=== PATIENT | female | born 1945 | race Caucasian/White ===

== ENCOUNTER 2021-02-16 18:56 | Inpatient (IN) | payer MEDICARE, OTHER ==
[~2021-02-16] VITALS: Ht 160 cm; Wt 108.0 kg
[2021-02-16 18:58] VITALS: BP 182/80
[2021-02-16] MEDS ORDERED: CLONAZEPAM 0.50.5 M1 PO (19:02)
[2021-02-16 21:41] LABS: ABSOLUTE BASOPHILS 0.1 thou/uL (0.0-0.2); ABSOLUTE EOSINOPHILS 0.1 thou/uL (0.0-0.7); ABSOLUTE LYMPHOCYTES 1.1 thou/uL (0.8-5.3); ABSOLUTE MONOCYTES 0.9 thou/uL (0.0-1.2); ABSOLUTE NEUTROPHILS 11.8 thou/uL (1.6-8.1); BASOPHILS 0.6 %; EOSINOPHILS 0.4 %; HEMATOCRIT 36.5 % (37.0-47.0); LYMPHOCYTES 7.6 %; MCH 27.4 pg (26.0-34.0); MCHC 32.9 g/dL (28.0-37.0); MCV 83.5 fL (80.0-100.0); MONOCYTES 6.4 %; MPV 8.5 fl. (7.2-11.1); NUCLEATED RBCS 0 /100WBC; PLATELET COUNT* 238 thou/uL (150-400); RBC 4.38 mil/uL (4.20-5.00); RDW-CV 15.4 % (10.5-14.5); WBC 13.9 thou/uL (4.0-11.0)
[2021-02-16 21:52] LABS: APTT 22.9 Seconds (25.0-31.3); PROTIME 10.5 Seconds (9.20-11.50)
[2021-02-16 22:01] LABS: ALBUMIN 3.5 g/dL (3.4-5.0); CALCIUM 8.5 mg/dL (8.5-10.1); CREATININE 0.9 mg/dL (0.6-1.3); POTASSIUM 3.8 mmol/L (3.5-5.1); TOTAL BILIRUBIN 0.4 mg/dL (<0.1-1.0)
[2021-02-16 23:18] VITALS: BP 169/70
[2021-02-16 23:20] VITALS: BP 152/71
--- NOTE | 2021-02-17 02:39 | NUR ---
ADMIT NOTE: RECIEVED PT FROM ED WITH FRACTURE, PT ALERT ORIENTED X4 , PT PULLED TO BED PAIN NOTED WITH MOVEMENT , ASSESMENT AND DATA COMPLETED. PT PLACED NPO. IV FLUIDS STARTED ORDERED.BED ALARM ON , YELLOW BAND PLACE AND YELLOW SLIPPER PLACED FOR FALL RISK.
[2021-02-17 04:00] VITALS: BP 136/61
--- NOTE | 2021-02-17 07:07 | NUR ---
PT RESTED WELL THROUHGOUT HOURLY ROUND IV FLUID INFUSING WELL. PUREWICK IN PLACE PT AWAKEN AT 0600 BLADDER SCANNED . SHOWS 565 , PT PLACED ON BEDPAN , PT UNABLE TO VOID. CALL PLACED HERIBERTO COTTER MD , AWAITING CALL BACK.
[2021-02-17 08:00] VITALS: BP 143/53
--- NOTE | 2021-02-17 08:00 | NUR ---
ORDER RECIEVED TO PLACED ABREU CATHETER IN , PLACED 16 FR , PT TOLETATED WELL, CLEAR YELLOW OUTPUT RETURNED. PT RESTING IN BED, GEORGE AT BEDSIDE.
--- NOTE | 2021-02-17 09:06 | EKG ---
[place] [address] ELECTROCARDIOGRAM REPORT Name: HAYLEY ESTEVEZ Room: [address] IN [facility].#: [id number] Admission: 02/16/21 Attend Phys: Vonnie Cabrales, Discharge: Date of : 43 Date of Service: 02/16/212036 Report #: [id number] THIS REPORT FOR: //name// [facility] [place] ED Test Date: 2021-02-16 Test Time: 20:37:38 Pat Name: HAYLEY ESTEVEZ Department: Room: [facility] Gender: F Drafter Apprentice: ADAM : 1945 Requested By: Kimberly Cutler Order Number: [id number] MD: Shaun Davis Measurements Intervals [place] Rate: 63 P: 14 CA: 180 QRS: 19 QRSD: 96 T: 19 QT: 437 QTc: 448 Interpretive Statements Sinus rhythm Low voltage, precordial leads Baseline wander in lead(s) II,III,aVF No previous ECG available for comparison Electronically Signed On 02-17-2021 9:06:27 CDT by Shaun Davis [email or web address] <ELECTRONICALLY SIGNED> By: Shaun Davis MD, FAC 02/17/21905 36 36 Shaun Davis MD, FAC /EPI
--- NOTE | 2021-02-17 10:37 | NUR ---
ASSUMED CARE OF PT AT 0730. PT A&0X4, DENIES ANY PAIN OR SHORTNESS OF BREATH AT THIS TIME. PT GIVEN PAIN MED BY NOC SHIFT WITH RELIEF. MED SURG STATUS. ON RA SAT UPPER 90'S. BEDREST. ORTHO HERE TO SEE PT. ORDERS RECEIVED FOR XRAY LLE WITH IMMOBILIZER IN PLACE. IMMOBILIZER PLACED TO LLE AND XRAY NOTIFIED. PT TO HAVE ORIF IN AM 02/18. CONSENT SIGNED AND PLACED IN FRONT OF CHART. NPO AFTER MIDNIGHT. IVF. ABREU TO DEPENDENT DRAINAGE. PT GOAL FOR TODAY IS PAIN MGMT, COMPLETE XRAY, IVF AND ORTHO CONSULT IN PLACE. AM ASSESSMENT CHARTED. MEDICATIONS PER NOV. PT REPOSITIONED EVERY 2 HOURS FOR COMFORT. HOURLY ROUNDING OBSERVED. BED IN LOW POSITION. CALL LIGHT WITHIN REACH. WILL CONTINUE PLAN OF CARE.
[2021-02-17 12:01] VITALS: BP 144/36
--- NOTE | 2021-02-17 13:46 | NUR ---
Pt is from [place], here with family. Had a fall, surgery today. Pt is normally independent and active. No DME. No hx of HH or SNF. CM following for dc needs post surgery. Therapies to see.
--- NOTE | 2021-02-17 14:03 | NUR ---
Nutrition: Pt admitted for femur FX s/p fall. H/o bilateral knee replacements and hip replacement. Wt: 238#. Seen for high BMI. Albumin 3.5. Pt is to have surgery. NPO after [place]. No nutritional needs at this time. Consider low risk.
[2021-02-17 15:51] VITALS: BP 98/65
[2021-02-17 23:47] VITALS: BP 125/47
[2021-02-18 05:17] LABS: ABSOLUTE EOSINOPHILS 0.2 thou/uL (0.0-0.7); ABSOLUTE LYMPHOCYTES 0.9 thou/uL (0.8-5.3); ABSOLUTE MONOCYTES 0.8 thou/uL (0.0-1.2); ABSOLUTE NEUTROPHILS 5.4 thou/uL (1.6-8.1); BASOPHILS 0.6 %; EOSINOPHILS 2.8 %; HEMATOCRIT 31.4 % (37.0-47.0); HEMOGLOBIN 10.3 gm/dL (12.0-15.0); LYMPHOCYTES 12.7 %; MCH 27.4 pg (26.0-34.0); MCHC 32.9 g/dL (28.0-37.0); MCV 83.1 fL (80.0-100.0); MONOCYTES 11.2 %; MPV 8.1 fl. (7.2-11.1); NUCLEATED RBCS 0 /100WBC; PLATELET COUNT* 189 thou/uL (150-400); POLYS 72.7 %; RBC 3.78 mil/uL (4.20-5.00); RDW-CV 15.5 % (10.5-14.5); WBC 7.4 thou/uL (4.0-11.0)
[2021-02-18 05:25] LABS: CALCIUM 7.9 mg/dL (8.5-10.1); CREATININE 0.8 mg/dL (0.6-1.3); POTASSIUM 3.7 mmol/L (3.5-5.1)
[2021-02-18 06:14] VITALS: BP 125/47
[2021-02-18 07:45] VITALS: BP 119/50
--- NOTE | 2021-02-18 10:24 | NUR ---
ASSUMED CARE OF PT AT 0730. PT LYING IN BED. DAUGHTER AT BEDSIDE. PT NPO FOR ORIF LEFT FEMUR TODAY. PT CURRENTLY DOWN IN PACU AT THIS TIME. A&0X4, DENIES ANY PAIN OR SHORTNESS OF BREATH AT THIS TIME-PT GIVEN PAIN MEDS BY NOC SHIFT WITH RELIEF. ON 2L NC SAT 97%. ABREU TO DEPENDENT DRAINAGE. IVF. PT GOAL FOR TODAY IS PAIN MGMT AND COMPLETION OF ORIF LEFT FEMUR. AM ASSESSMENT CHARTED. MEDICATIONS PER NOV. PT REPOSITIONED EVERY 2 HOURS FOR COMFORT. HOURLY ROUNDING OBSERVED. BED IN LOW POSITION. FALL PRECAUTIONS IN PLACE. CALL LIGHT WITHIN REACH. WILL CONTINUE PLAN OF CARE.
--- NOTE | 2021-02-18 13:06 | NUR ---
Pt to surgery today. Therapy evals ordered. CM to await therapy recommendations to determine safe dc plan. Anticipate dc in a few days.
[2021-02-18 15:58] VITALS: BP 152/62
[2021-02-18 21:00] VITALS: BP 134/57
[2021-02-19] VITALS: BP 123/49
[2021-02-19 04:00] VITALS: BP 116/48
[2021-02-19 04:43] LABS: ABSOLUTE LYMPHOCYTES 0.8 thou/uL (0.8-5.3); ABSOLUTE MONOCYTES 1.1 thou/uL (0.0-1.2); BASOPHILS 0.2 %; EOSINOPHILS 0.1 %; HEMATOCRIT 27.1 % (37.0-47.0); HEMOGLOBIN 9.2 gm/dL (12.0-15.0); LYMPHOCYTES 7.1 %; MCH 28.1 pg (26.0-34.0); MCV 82.7 fL (80.0-100.0); MONOCYTES 9.7 %; MPV 8.9 fl. (7.2-11.1); NUCLEATED RBCS 0 /100WBC; PLATELET COUNT* 172 thou/uL (150-400); POLYS 82.9 %; RBC 3.27 mil/uL (4.20-5.00); RDW-CV 15.7 % (10.5-14.5); WBC 10.8 thou/uL (4.0-11.0)
[2021-02-19 04:50] LABS: ALBUMIN 2.3 g/dL (3.4-5.0); CALCIUM 7.8 mg/dL (8.5-10.1); CREATININE 0.8 mg/dL (0.6-1.3); POTASSIUM 3.9 mmol/L (3.5-5.1); TOTAL BILIRUBIN 0.4 mg/dL (<0.1-1.0); TOTAL PROTEIN 5.4 g/dL (6.4-8.2)
[2021-02-19 08:15] VITALS: BP 138/52
--- NOTE | 2021-02-19 08:23 | NUR ---
PATIENT SLEPT MOST OF THE NIGHT. IV FLUIDS AND ANTIBIOTICS WERE GIVEN ORDERED. ABREU REMAINS TO DEPENDENT DRAIN. DRESSING TO LEFT HIP REMAINS INTACT. PATIENT WAS GIVEN PAIN MEDICINE ONCE THIS SHIFT. WILL CONTINUE TO MONITOR.
[2021-02-19] MEDS ORDERED: TRAMADOL 50 MG50 MG PO ×2 (11:39→19:35)
[2021-02-19] MEDS ORDERED: ELIQUIS5 MG PO (11:39)
--- NOTE | 2021-02-19 14:45 | NUR ---
I HAVE REVIEWED AND AGREE WITH THE EVALUATION AND RECOMMENDATIONS DOCUMENTED BY KAYY SALDANA FOR THIS DAY. MEHRDAD LOZOYA, STEPHANIT
[2021-02-19 17:57] VITALS: BP 138/52
--- NOTE | 2021-02-19 20:24 | NUR ---
I ASSUMED CARE OF THE PATIENT AT 0700. SHE IS ALERT AND ORIENTED X4 AND IS VERY PLEASANT. SHE IS UP WITH ASSIST OF 1 , GAIT BELT AND WALKER. BED IS IN THE LOW LOCKED POSITION AND CALL LIGHT IS IN REACH. PATIENT NEEDS ARE MET DURING HOURLY ROUNDING. SHE WORKED WELL WITH THERAPY. OXYGEN WAS TITRATED TO ROOM AIR. ABREU WAS REMOVED WELL IV. SHE IS DISCHARGED TO HER DAUGHTER'S HOME FOR 2 WEEKS UNTIL HER FOLLOWUP WITH ORTHO. SHE WILL THEN TRAVEL HOME TO [place] WHEN SHE GETS CLEARANCE. SENT HOME AT 1900.
== END 2021-02-19 19:00 | disposition home or self-care (01) | DRG 481 ==
LOC: M.ERS 18:56 → M.TBA-ER 20:57 → M.2W 20:57 → M.ORTHSURG 02-18 19:47
PROVIDERS: Internal Medicine; Personal Emergency Response Attendant; ADMIT Internal Medicine; ATTEND Internal Medicine
PROC: 0QSC06Z Reposition Left Lower Femur with Intramedullary Internal Fixation Device, Open Approach (ICD-10-PCS; principal; 2021-02-18)
DX: S72.402A Unspecified fracture of lower end of left femur, initial encounter for closed fracture (principal); M97.12XA Periprosthetic fracture around internal prosthetic left knee joint, initial encounter; Z68.41 Body mass index [BMI] 40.0-44.9, adult; E66.01 Morbid (severe) obesity due to excess calories; Z20.822 Contact with and (suspected) exposure to COVID-19; Z96.653 Presence of artificial knee joint, bilateral; Z96.641 Presence of right artificial hip joint; F41.9 Anxiety disorder, unspecified; G25.81 Restless legs syndrome; W01.0XXA Fall on same level from slipping, tripping and stumbling without subsequent striking against object, initial encounter; M81.0 Age-related osteoporosis without current pathological fracture; Z88.6 Allergy status to analgesic agent; Z88.8 Allergy status to other drugs, medicaments and biological substances; Y93.89 Activity, other specified; Y92.098 Other place in other non-institutional residence as the place of occurrence of the external cause; Y99.8 Other external cause status